=== PATIENT | male | born 1955 | race Caucasian/White ===

== ENCOUNTER 2016-11-29 06:30 | Inpatient (IN) | payer OTHER ==
[~2016-11-29] VITALS: Ht 213.4 cm; Wt 107.0 kg
[2016-11-29] MEDS ORDERED: GABAPENTIN 300 MG CAPSULE ONE (06:49)
[2016-11-29] MEDS ORDERED: CELECOXIB 200 MG CAPSULE ONE (06:49)
[2016-11-29] MEDS ORDERED: ACETAMINOPHEN 500 MG TABLET ONE (06:50)
[2016-11-29] MEDS ORDERED: TRANEXAMIC ACID 650 MG TABLET ONE (06:51)
[2016-11-29] MEDS ORDERED: oxyCODONE HCL 10 MG TAB.ER.12H PO ONE (06:51)
[2016-11-29] MEDS ORDERED: SEVOFLURANE 15 MIN GAS INH ONE (07:40)
[2016-11-29] MEDS ORDERED: KETOROLAC TROMETHAMINE 30 MG VIAL IVP ONE (07:40)
[2016-11-29] MEDS ORDERED: BUPIVACAINE /EPINEPHRINE/PF 0.5% 30 ML VIAL INJ ONE (07:40)
[2016-11-29] MEDS ORDERED: LIDOCAINE 2%, 20 ML MDV INJ ONE (07:40)
[2016-11-29] MEDS ORDERED: MORPHINE SULFATE 10MG/10ML PF AMP EP ONE (07:40)
[2016-11-29] MEDS ORDERED: NS 100 ML BAG IV ONE (07:40)
[2016-11-29] MEDS ORDERED: TRANEXAMIC ACID 1,000 MG/10 ML VIAL IV ONE (07:40)
[2016-11-29] MEDS ORDERED: ROPIVACAINE HCL/PF 5 MG/ML 0.5% 30 ML VIAL INJ ONE (07:40)
[2016-11-29] MEDS ORDERED: EPINEPHrine 1 MG/ML AMP IVP ONE (07:40)
[2016-11-29] MEDS ORDERED: ONDANSETRON HCL 4 MG/2 ML VIAL IVP ONE (07:40)
[2016-11-29] MEDS ORDERED: LR 1,000 ML IV.SOLN IV ONE (07:40)
[2016-11-29] MEDS ORDERED: MIDAZOLAM HCL 5 MG/5 ML VIAL IVP ONE (07:40)
[2016-11-29] MEDS ORDERED: PROPOFOL 200MG/ 20ML VIAL (DIPRIVAN) IV ONE (07:40)
[2016-11-29] MEDS ORDERED: fentaNYL CITRATE 250 MCG/5 ML AMP IV ONE (07:40)
[2016-11-29] MEDS ORDERED: POLYMYXIN 500,000/BACIT.10,000 UNITS in NS IRR 1 L IR ONE (07:59)
[2016-11-29] MEDS ORDERED: CEFAZOLIN SOD 2 GM in D5W 50 ML IV ONE (08:00)
[2016-11-29] MEDS ORDERED: PRO40 PO (08:01)
[2016-11-29] MEDS ORDERED: METO50TA7 PO (08:01)
[2016-11-29] MEDS ORDERED: LOSA50TA3 PO (08:01)
[2016-11-29] MEDS ORDERED: NALOXONE HCL 0.4 MG/ML AMP (NARCAN) IVP PRN (09:45)
[2016-11-29] MEDS ORDERED: HYDROmorphone 1 MG INJ. 1 MG/ML AMPUL IVP PRN (09:45)
[2016-11-29] MEDS ORDERED: MIDAZOLAM HCL 5 MG/5 ML VIAL IVP PRN (09:45)
[2016-11-29] MEDS ORDERED: MORPHINE 4 MG/ML INJ. SYRINGE IVP PRN ×2 (09:45→10:45)
[2016-11-29] MEDS ORDERED: ONDANSETRON HCL 4 MG/2 ML VIAL IVP PRN (09:45)
[2016-11-29] MEDS ORDERED: fentaNYL CITRATE/PF 100 MCG/2 ML AMP IVP PRN (09:45)
[2016-11-29] MEDS ORDERED: LABETALOL 100 MG/ 20ML VIAL IVP PRN (09:45)
[2016-11-29] MEDS ORDERED: LR 1,000 ML IV ONE (09:45)
[2016-11-29] MEDS ORDERED: SENNOSIDES 8.6 MG TABLET PO PRN (10:45)
[2016-11-29] MEDS ORDERED: PROMETHAZINE HCL 25 MG/ML AMP IVP PRN (10:45)
[2016-11-29] MEDS ORDERED: oxyCODONE HCL 5 MG TABLET PO PRN (10:45)
[2016-11-29] MEDS ORDERED: KETOROLAC TROMETHAMINE 30 MG VIAL IVP PRN (10:45)
[2016-11-29] MEDS ORDERED: DIPHENHYDRAMINE HCL 50 MG CAPSULE PO PRN (10:45)
[2016-11-29] MEDS: D5LR 1,000 ML IV SCH ×2 (11:45→21:32)
--- NOTE | 2016-11-29 11:45 | NUR ---
RECEIVED PT FORM PACU Received pt from PACU AAOx4, no s/s resp distress, no c/o pain or discomfort. Received report from Brooke ALVARADO. Pt's at bedside. Pt placed on telemetry as ordered. Noted clean, dry and intact dressing to right knee with polar care in place. Right heel elevated on pillow. Pt able to wiggle toes, move right foot, pedal pulse palpable bilaterally. Plan of care for the day reviewed with pt-pt and his verbalized their understanding. Pain management, skin and safety discussed-teach back done. Contact phone number explained, call light within reach.
[2016-11-29 11:55] VITALS: BP_SYST 134
--- NOTE | 2016-11-29 12:01 | NUR ---
CONSULT PO MED MANAGEMENT S/P RTKA DR RODRIGUEZ [phone] S/W [facility] OFFICE @ [id number]
[2016-11-29 13:58] VITALS: BP_SYST 134
--- NOTE | 2016-11-29 14:00 | NUR ---
BLEEDING Pt bleeding from incision site, pt's BP 140/75, dressing reinforced, noted pt had ambulated with physical therapy within last half hour, bellows charger assembler informed.
--- NOTE | 2016-11-29 15:12 | NUR ---
ROUNDS Pt in bed with CPM on at ordered setting, pt tolerating it well, no s/s resp distress, pt states pain tolerable at -04/30. Call light within reach. Addendum: 11/29/16 at 1516 by Leticia Be RN No further bleeding from the incision site noted.
[2016-11-29] MEDS: ACETAMINOPHEN 500 MG TABLET PO SCH ×2 (16:19→21:25)
[2016-11-29] MEDS: CEFAZOLIN 1 GM IVPB PREMIX 50 ML IV SCH ×2 (16:26→21:22)
--- NOTE | 2016-11-29 18:45 | NUR ---
CLOSING NOTE Pt resting quietly in bed with CPM on at ordered settings, tolerating well, c/o tolerable pain 2-10. No further bleeding noted from incision site. Pt's at bedside. Pt encouraged to use the IS 10 times per hour while. IVF infusing well to left hand at ordered rate with no s/s infiltration to site. Needs met, call light within reach.
[2016-11-29 20:00] VITALS: BP_SYST 131
--- NOTE | 2016-11-29 20:00 | NUR ---
PM Shift Assessment Received patient sitting up in bed, AAO x4, no acute distress noted, is at the bedside. Assessment complete, states pain is tolerable at this time. Pain management education provided, patient verbalized understanding. RLE noted with dressing in place, scant amount of dry blood noted. Per AM RNMD aware and dressing was reinforced, will monitor closely for any additional bleeding. CPM and polar care in place, patient tolerating well. No complain of numbness or tingling to RLE, pedal pulses present, capillary refill <3 seconds, patient able to plantar and dorsi flex BLE. Gilliam catheter noted, secured in place, draining urine well to gravity. IV noted to left hand, noted to be kinked, new IV to be started. Incentive spirometer noted at the beside, patient able to demonstrate correct use up to 3000mL of inspired air. Education provided on the importance of use 10x per hour while awake, he verbalized understanding. Plan of care discussed with patient and updated on board. Patient is verbally able to make needs known and encouraged to do so. Call light is within reach, all fall and safety precautions in place, will continue to monitor for change in patient status.
[2016-11-29] MEDS: GABAPENTIN 300 MG CAPSULE PO SCH (21:24)
[2016-11-29] MEDS: CELECOXIB 200 MG CAPSULE PO SCH (21:26)
--- NOTE | 2016-11-29 22:33 | NUR ---
RN Rounds Patient is resting quietly in bed, no acute distress noted. Scheduled medications administered as ordered per MD. New IV was started to right hand, 22 gauge, good blood return noted, flushes well, IV antibiotics restarted and infusing well. CPM and polar care remain in place, patient tolerating well. No additional blood noted to dressing on knee. Encouraged patient to call with all needs, he verbalized understanding. Call light is within reach, all fall and safety precautions in place, will continue to monitor.
[2016-11-29] MEDS: oxyCODONE HCL 5 MG TABLET PO PRN (23:23)
[2016-11-30 00:23] VITALS: BP_SYST 118
--- NOTE | 2016-11-30 00:31 | NUR ---
RN Rounds Patient is resting quietly in bed, no acute distress noted. CPM was removed at 2300 as ordered, pillow was placed under ankle, no additional bleeding noted from incision site. PRN pain medication was administered earlier as ordered per MD, upon reassessment, patient verbalized relief of pain to tolerable level on pain scale. Call light is within reach, all fall and safety precautions in place, will continue to monitor.
--- NOTE | 2016-11-30 02:29 | NUR ---
RN Rounds Patient is sleeping, respirations are even and unlabored, no acute distress noted. No non-verbal signs of pain noted at this time. Call light is within reach, all fall and safety precautions in place, will continue to monitor.
[2016-11-30 04:16] VITALS: BP_SYST 129
--- NOTE | 2016-11-30 04:32 | NUR ---
RN Rounds Patient is resting quietly in bed, no acute distress noted. States pain is tolerable at this time. No additional bleeding noted from incision site on dressing. Polar care in place, Gilliam continues to drain well to gravity. Encouraged patient to call with all needs. Call light is within reach, all fall and safety precautions in place, will continue to monitor.
[2016-11-30] MEDS: D5LR 1,000 ML IV SCH (05:44)
[2016-11-30] MEDS: CEFAZOLIN 1 GM IVPB PREMIX 50 ML IV SCH (05:44)
--- NOTE | 2016-11-30 06:33 | NUR ---
Closing Notes Patient is resting quietly in bed, no acute distress noted. States pain is tolerable at this time, re-educated on pain management, patient verbalized understanding. IV antibiotics infusing well. Patient is stable, all needs met throughout shift. Will continue to monitor until endorsed to AM nurse at bedside.
[2016-11-30 06:52] LABS: CALCIUM 8.8 mg/dL (8.4-11.0); CREATININE 0.87 mg/dL (0.55-1.30); POTASSIUM 4.1 mmol/L (3.5-5.1)
[2016-11-30 07:20] LABS: BASOPHILS % (AUTO) 0.2 % (0.0-2.0); EOSINOPHILS % (AUTO) 0.4 % (0.0-4.0); HEMATOCRIT 39.5 % (36-54); HEMOGLOBIN 13.5 g/dL (14.0-18.0); LYMPHOCYTES # (AUTO) 1.3 K/uL (1.0-5.5); LYMPHOCYTES % (AUTO) 21.8 % (20.5-51.5); MEAN CORPUSCULAR HEMOGLOBIN 31 pg (27-31); MEAN CORPUSCULAR HGB CONC 34 % (32-36); MEAN CORPUSCULAR VOLUME 92 fL (79.0-98.0); MONOCYTES # (AUTO) 0.6 K/uL (0.0-1.0); MONOCYTES % (AUTO) 11.2 % (1.7-9.3); NEUTROPHILS # (AUTO) 3.9 K/uL (1.8-7.7); NEUTROPHILS % (AUTO) 66.4 % (40.0-70.0); PLATELET COUNT (AUTO) 146 K/uL (130-430); RED CELL DISTRIBUTION WIDTH 12.5 % (9.0-15.0); WHITE BLOOD COUNT (AUTO) 5.8 K/uL (4.8-10.8)
--- NOTE | 2016-11-30 08:10 | NUR ---
Opening Note Report received form Anayeli light RN. Patient is in stable condition and is resting in bed. Patient is s/p right knee arthroplasty by Dr. Washington. Right pedal pulse is palpable and patient is able to move all of the toes on the right foot. Right knee is wrapped with an michelle bandage and polar care is in place. Patient is using IS. Gilliam cath is to gravity draining clear yellow urine. Will continue to monitor.
[2016-11-30 08:19] VITALS: BP_SYST 125
[2016-11-30] MEDS: CELECOXIB 200 MG CAPSULE PO SCH ×2 (08:33→21:15)
[2016-11-30] MEDS: ACETAMINOPHEN 500 MG TABLET PO SCH ×3 (08:33→21:15)
[2016-11-30] MEDS: PANTOPRAZOLE SODIUM 40 MG TAB PO SCH (08:33)
[2016-11-30] MEDS: METOPROLOL SUCCINATE 50 MG TAB.SR.24H (TOPROL XL) PO SCH (08:34)
[2016-11-30] MEDS: LOSARTAN POTASSIUM 50 MG TABLET (COZAAR) PO SCH (08:34)
--- NOTE | 2016-11-30 08:44 | NUR ---
HCP/PA/SUSANA: Called JANA Mary Alice Zelaya made her aware of discharge to SNF vs Home on Wed possible home health w/PT, CPM, [facility], and [facility]. Faxed order to [phone]. Filed fax confirmation in binder.
[2016-11-30] MEDS: RIVAROXABAN 10 MG TABLET PO SCH (09:05)
[2016-11-30 13:18] VITALS: BP_SYST 139
--- NOTE | 2016-11-30 13:47 | NUR ---
DC planning: Pt's Shawanda called our office asking about dc plans for home vs rehab facility. I explained the differences between home with home health vs rehab. Her concerns were that on Tuesday, she would not be home to help him because she has to go to work, but her brother in law would be able to come a couple of hours per day. I informed her about non-medical care givers that could help out at home for hourly fee (not covered by insurance but would only be needed temporarily), and said I will leave a few pamphlets at the bedside. I also explained Mary Alice Zelaya is the medical group corrections caseworker and gave her Mary Alice's ph# [phone] to discuss the home health and DME, and Shawanda anticipates discharge tomorrow. TADEO ALVARADO
--- NOTE | 2016-11-30 16:48 | NUR ---
PAGED PAGED RADHA SNYDER AT [phone]MALINICK LEVIN RICHARD.
[2016-11-30 16:58] VITALS: BP_SYST 126
--- NOTE | 2016-11-30 17:09 | NUR ---
Spoke with Spoke with Dr. Hernandez, who is covering for Dr. Dodge. Notified MD that bright red blood was on the dressing and the reinforcement that was done last night. Report pre op and today's am labs to MD. Order for stat H&H was received. MD also stated to keep reinforcing the surgical dressing. Will follow up with labs.
[2016-11-30 17:33] LABS: HEMATOCRIT 36.8 % (36-54); HEMOGLOBIN 12.7 g/dL (14.0-18.0)
--- NOTE | 2016-11-30 18:53 | NUR ---
Closing Note Spoke with Dr. Hernandez. Current H&H of 12.7 and 36.9 to MD. MD also made aware that the patient is on Xeralto. No changes were made to his medications. Patient has been in stable condition throughout the day. Surgical dressing was reinforced. IV is on the lef hand 22g running [id number]. Patient has a strong right pedal pulse and has been using the IS. Will endorse care to the oncoming nurse.
[2016-11-30 20:00] VITALS: BP_SYST 124
--- NOTE | 2016-11-30 20:00 | NUR ---
Initial PM Note Pt was received lying in bed fully AAO x4. Pt's is visiting at the bedside. Pt's speech is clear and pt is able to make his need known. No c/o pain or discomfort at this time. No acute distress noted. Rt knee dressing is slightly saturated with pinkish drainage. Polar ice machine to Rt knee is on. CPM to Rt knee is on at 0 to 60 degrees and well tolerated by pt. Neurovascular checks to BLE are WN. All toes are warm to touch and with good capillary refills. Pt is able to wriggle his toes freely. IVF of D5LR is infusing well in RH at TKO rate of 10ml/hr without any signs of infiltration. Pt was instructed to use IS 10X q1hr Wa and pt verbalized understanding. Pt had good demonstration otilia IS usage with volume up to 3000ml.
--- NOTE | 2016-11-30 21:10 | NUR ---
Rt Knee Dressing Rt knee dressing noted with moderate amount of pinkish drainage and was reinforced with ABD pads.
[2016-11-30] MEDS: GABAPENTIN 300 MG CAPSULE PO SCH (21:16)
--- NOTE | 2016-11-30 23:00 | NUR ---
CPM Off CPM was removed from Rt Knee per Physical Therapist's recommendation. Rt leg was elevated on a pillow with the pillow away from underneath pt's Rt knee. Rt knee dressing dry and intact at this time. No active bleeding noted. Icing to Rt knee continued with Polar care. Neurovascular checks to BLE remain WNL. Fall and safety precautions are in place. Call light is with pt and bed alarm is on. Will continue to monitor pt.
--- NOTE | 2016-12-01 | NUR ---
Rounds Pt is resting comfortably in bed and no acute distress noted. No c/o pain or discomfort. Fall and safety precautions are in place. Will continue to monitor pt. Addendum: 12/01/16 at 0508 by Shanta Gan RN Neurovascular checks to BLE are WNL. Toes are warm to touch and with good capillary refills. Pt is able to wriggle his toes freely. Rt knee dressing is dry and intact. No evidence of active bleeding noted. Polar ice to Rt knee continues.
--- NOTE | 2016-12-01 00:58 | NUR ---
Pain Medication Request and Refusal Pt c/o 09/30 pain in his right knee and requested pain medication. After two Oxycodone tablets were removed from Pyxis, pt declined the medication. Pt stated he was feeling better with adjustment of his body in bed. Rt knee dressing is dry and intact. No evidence of active bleeding noted. Fall and safety precautions are in place. Will continue to monitor pt.
[2016-12-01 01:29] VITALS: BP_SYST 129
--- NOTE | 2016-12-01 02:00 | NUR ---
Rounds Pt is sleeping comfortably in bed without any distress noted. IVF is infusing well in his right hand. Call light is with pt and bed alarm is on.
[2016-12-01] MEDS: D5LR 1,000 ML IV SCH ×4 (02:33→22:33)
[2016-12-01 03:28] VITALS: BP_SYST 113
--- NOTE | 2016-12-01 04:00 | NUR ---
Rounds Pt is sleeping comfortably in bed without any distress noted. Fall and safety precautions are in place. IVF is infusing well at TKO rate and no signs of infiltration noted. Addendum: 12/01/16 at 0508 by Shanta Gan RN Neurovascular checks to BLE are WNL. Toes are warm to touch and with good capillary refills. Pt is able to wriggle his toes freely. Rt knee dressing is dry and intact. No evidence of active bleeding noted. Polar ice to Rt knee continues.
--- NOTE | 2016-12-01 06:53 | NUR ---
Closing Note Pt is awake and resting comfortably in bed. All pt's needs were attended to. No fall or injury noted this shift. IVF is infusing well in right hand at TKO rate without any signs of infiltration. Rt knee dressing is dry and intact with polar care in place. Call light is with pt and bed alarm is on. Will endorse to day shift nurse.
[2016-12-01 07:13] LABS: CALCIUM 8.6 mg/dL (8.4-11.0); CREATININE 0.85 mg/dL (0.55-1.30)
[2016-12-01 07:26] LABS: BASOPHILS # (AUTO) 0.1 K/uL (0.0-0.2); BASOPHILS % (AUTO) 0.9 % (0.0-2.0); EOSINOPHILS % (AUTO) 0.8 % (0.0-4.0); HEMATOCRIT 35.7 % (36-54); HEMOGLOBIN 12.6 g/dL (14.0-18.0); LYMPHOCYTES # (AUTO) 1.2 K/uL (1.0-5.5); LYMPHOCYTES % (AUTO) 18.8 % (20.5-51.5); MEAN CORPUSCULAR HEMOGLOBIN 32 pg (27-31); MEAN CORPUSCULAR HGB CONC 35 % (32-36); MEAN CORPUSCULAR VOLUME 92 fL (79.0-98.0); MONOCYTES # (AUTO) 0.8 K/uL (0.0-1.0); MONOCYTES % (AUTO) 12.6 % (1.7-9.3); NEUTROPHILS # (AUTO) 4.1 K/uL (1.8-7.7); NEUTROPHILS % (AUTO) 66.9 % (40.0-70.0); PLATELET COUNT (AUTO) 135 K/uL (130-430); RED CELL DISTRIBUTION WIDTH 12.6 % (9.0-15.0); WHITE BLOOD COUNT (AUTO) 6.2 K/uL (4.8-10.8)
--- NOTE | 2016-12-01 07:29 | NUR ---
Nutrition Update Marcos Scale noted. Pt admitted for unilateral primary osteoarthritis, R knee. Diet: regular BMI: 23.5 kg/m2 RD to follow per nutrition care standards.
--- NOTE | 2016-12-01 07:49 | NUR ---
MD ROUNDS DR KELVIN DUNNE, AWARE OF PATIENTS CONDITION AND OF THE BLEEDING HE HAD YESTERDAY ON HIS RIGHT KNEE POST OPERATIVELY, MD CHANGED THE DRESSING AND STATED TO CONTINUE TO MONITOR PT FOR ANY CHANGES, PT WILL BE STAYING ONE MORE DAY IN THE HOSPITAL.
--- NOTE | 2016-12-01 08:00 | NUR ---
INITIAL NOTE RECEIVED PT IN BED, NO S/S OF DISTRESS OR SOB NOTED, PT HAS NO C/O PAIN AT THIS TIME, PT IN STABLE CONDITION, PT AAOX4, VERBAL. IV CATHETER PATENT, NO SIGNS OF INFECTION OR INFILTRATION NOTED. PT HAS AN INCISION ON RIGHT KNEE, CLEAN AND DRY AFTER DRESSING CHANGE PER MD. PT ABLE TO MOVE TOES ON RIGHT FOOT, SENSATION PRESENT, CAPILLARY REFILL LESS THAN 3 SECONDS, PULSE PALPABLE, NO TINGLING OR NUMBNESS PER PT. EDUCATED PT ON USE OF INCENTIVE SPIROMETER, PT TO USE 10 TIMES AN HOUR WHILE AWAKE, PT VERBALIZED UNDERSTANDING, PT AT 3000ML. BED AT LOWEST POSITION, CALL LIGHT WITHIN REACH, WILL CONTINUE TO MONITOR PT FOR ANY CHANGES. FALL PRECAUTIONS IN PLACE.
[2016-12-01 08:21] VITALS: BP_SYST 128
[2016-12-01] MEDS: ACETAMINOPHEN 500 MG TABLET PO SCH ×3 (08:34→21:24)
[2016-12-01] MEDS: METOPROLOL SUCCINATE 50 MG TAB.SR.24H (TOPROL XL) PO SCH (08:36)
[2016-12-01] MEDS: LOSARTAN POTASSIUM 50 MG TABLET (COZAAR) PO SCH (08:37)
[2016-12-01] MEDS: PANTOPRAZOLE SODIUM 40 MG TAB PO SCH (08:52)
[2016-12-01] MEDS: CELECOXIB 200 MG CAPSULE PO SCH ×2 (08:52→21:24)
[2016-12-01] MEDS: RIVAROXABAN 10 MG TABLET PO SCH (10:15)
--- NOTE | 2016-12-01 10:50 | NUR ---
ROUNDS PT UP IN CHAIR, NO S/S OF DISTRESS OR SOB NOTED, PT HAS NO C/O PAIN AT THIS TIME, PT IN STABLE CONDITION, TALKING TO FAMILY AT BEDSIDE, WILL CONTINUE TO MONITOR PT FOR ANY CHANGES.
--- NOTE | 2016-12-01 12:00 | NUR ---
NEUROVASCULAR CHECKS PT HAS AN INCISION ON RIGHT KNEE, CLEAN AND DRY. PT ABLE TO MOVE TOES ON RIGHT FOOT, SENSATION PRESENT, CAPILLARY REFILL LESS THAN 3 SECONDS, PULSE PALPABLE, NO TINGLING OR NUMBNESS PER PT. Addendum: 12/01/16 at 1752 by Teresa Barrios RN NOTED TO BLOOD TO DRESSING, CHECKED AND DRESSING CLEAN.
--- NOTE | 2016-12-01 12:30 | NUR ---
ROUNDS PT SITTING UP IN CHAIR, EATING LUNCH, NO S/S OF DISTRESS OR SOB NOTED, PT HAS NO C/O PAIN AT THIS TIME, PT IN STABLE CONDITION, WILL CONTINUE TO MONITOR PT FOR ANY CHANGES.
[2016-12-01 12:33] VITALS: BP_SYST 125
[2016-12-01 17:09] VITALS: BP_SYST 114; BP_SYST 125
--- NOTE | 2016-12-01 18:15 | NUR ---
CLOSING NOTE PT IN BED, NO S/S OF DISTRESS OR SOB NOTED, PT HAS NO C/O PAIN AT THIS TIME, INCISION ON RIGHT KNEE, CLEAN AND DRY NOTED NO BLEEDING. PT ABLE TO MOVE TOES ON RIGHT FOOT, SENSATION PRESENT, CAPILLARY REFILL LESS THAN 3 SECONDS, PULSE PALPABLE, NO TINGLING OR NUMBNESS PER PT. BED AT LOWEST POSITION, CALL LIGHT WITHIN REACH, WILL ENDORSE CARE OF PT TO INCOMING NURSE. FALL PRECAUTIONS IN PLACE. NEEDS MET THROUGHOUT SHIFT.
--- NOTE | 2016-12-01 18:40 | NUR ---
WOUND REASSESSMENT: REASSESSED RT KNEE WOUND. SMALL SPOT OF BLOOD OOZING THROUGH GAUZE, NOTED AND MARKED. NO CHANGE SINCE A.M. ASSESSMENT. PT RESTING COMFORTABLY. WILL ENDORSE TO WHIPPER RN.
[2016-12-01 20:00] VITALS: BP_SYST 113
--- NOTE | 2016-12-01 20:00 | NUR ---
Initial PM Note Pt was received lying in bed fully AAO x4. Pt's speech is clear and pt is able to make his needs known. No c/o pain or discomfort at this time. No acute distress noted. Rt knee dressing dry and intact and no evidence of active bleeding noted. Small area of old bleeding site noted. Polar ice machine to Rt knee is on. CPM is off and pt does not want it reapplied after he got out of bed to use BSC around change of shift. Rt leg is elevated on a pillow with the pillow away from pt's Rt knee. Neurovascular checks to BLE are WNL. All toes are warm to touch and with good capillary refills. Pt is able to wriggle his toes freely. Saline lock in RH is without any signs of infiltration and pt does not want IVF reconnected. Pt was instructed to use IS 10X q1hr WA and pt verbalized understanding. Will continue to monitor pt.
[2016-12-01] MEDS: GABAPENTIN 300 MG CAPSULE PO SCH (21:24)
--- NOTE | 2016-12-01 22:00 | NUR ---
Rounds Pt is sleeping without any distress noted. Call light is with pt and bed alarm is on.
--- NOTE | 2016-12-02 | NUR ---
Rounds Pt is sleeping without any resp distress noted. Rt knee dressing is dry and intact without any signs of active bleeding. Neurovascular checks to BLE are WNL. All toes are warm to touch and with good capillary refills. Pt is able to wriggle his toes freely.
[2016-12-02 00:37] VITALS: BP_SYST 106
--- NOTE | 2016-12-02 02:00 | NUR ---
Rounds Pt is sleeping comfortably in bed. Fall and safety precautions are in place. Call light is with pt and bed alarm is on.
--- NOTE | 2016-12-02 03:56 | NUR ---
Rounds Pt is resting comfortably in bed. Neurovascular checks to BLE are WNL. All toes are warm to touch and with good capillary refills. Pt is able to wriggle his toes freely. Call light is with pt and bed alarm is on.
[2016-12-02 04:50] VITALS: BP_SYST 111
--- NOTE | 2016-12-02 05:30 | NUR ---
Rounds Pt is sleeping without any respiratory distress noted. Fall and safety precautions are in place. Will continue to monitor pt.
--- NOTE | 2016-12-02 07:15 | NUR ---
Closing Note Pt is awake and resting quietly in bed. Rt knee dressing remains dry and intact with no active bleeding noted. No c/o pain or discomfort at this time. Bedside report was given to day shift nurse.
[2016-12-02 07:20] LABS: CALCIUM 9.4 mg/dL (8.4-11.0); CREATININE 0.71 mg/dL (0.55-1.30); POTASSIUM 3.9 mmol/L (3.5-5.1)
[2016-12-02 07:40] VITALS: BP_SYST 132
--- NOTE | 2016-12-02 07:40 | NUR ---
Opening Note Patient A/ox3, laying in bed, watching TV. No complaints of pain. Pulses assessed, +2 and equal, sensation noted, cap refill <3 seconds, able to wiggle toes and push up and down on nurse's hands. Foot elevated on pillow, polar care on. Notified that PT will be in to work with him and pain medications will be given at that time. Patient expressed concern about not having a bowel movement and requests a laxative. No orders for PRN stool softeners at this time, will notify Dr Bishop. Bed alarm set, call light in reach and safety precautions in order.
[2016-12-02 07:48] LABS: BASOPHILS % (AUTO) 0.5 % (0.0-2.0); EOSINOPHILS # (AUTO) 0.1 K/uL (0.0-0.4); EOSINOPHILS % (AUTO) 0.8 % (0.0-4.0); HEMATOCRIT 34.5 % (36-54); HEMOGLOBIN 11.7 g/dL (14.0-18.0); LYMPHOCYTES # (AUTO) 1.1 K/uL (1.0-5.5); LYMPHOCYTES % (AUTO) 17.8 % (20.5-51.5); MEAN CORPUSCULAR HEMOGLOBIN 32 pg (27-31); MEAN CORPUSCULAR HGB CONC 34 % (32-36); MONOCYTES # (AUTO) 0.8 K/uL (0.0-1.0); MONOCYTES % (AUTO) 12.2 % (1.7-9.3); NEUTROPHILS # (AUTO) 4.3 K/uL (1.8-7.7); NEUTROPHILS % (AUTO) 68.7 % (40.0-70.0); PLATELET COUNT (AUTO) 147 K/uL (130-430); RED BLOOD CELL COUNT(AUTO) 3.68 MIL/uL (4.2-6.2); RED CELL DISTRIBUTION WIDTH 12.5 % (9.0-15.0); WHITE BLOOD COUNT (AUTO) 6.3 K/uL (4.8-10.8)
[2016-12-02 07:49] LABS: MEAN CORPUSCULAR VOLUME 94 fL (79.0-98.0)
--- NOTE | 2016-12-02 08:30 | NUR ---
Dr Edna Springer Notified that patient has not had a bowel movement since tuesday and would like a stool softener. Stated he would put an order in.
[2016-12-02] MEDS: D5LR 1,000 ML IV SCH (08:33)
[2016-12-02] MEDS: LOSARTAN POTASSIUM 50 MG TABLET (COZAAR) PO SCH (08:39)
[2016-12-02] MEDS: ACETAMINOPHEN 500 MG TABLET PO SCH ×2 (08:40→15:00)
[2016-12-02] MEDS: METOPROLOL SUCCINATE 50 MG TAB.SR.24H (TOPROL XL) PO SCH (08:41)
[2016-12-02] MEDS: PANTOPRAZOLE SODIUM 40 MG TAB PO SCH (08:41)
--- NOTE | 2016-12-02 09:18 | NUR ---
HCP/PA/SUSANA: Called JANA Zelaya made her aware of discharge home if ok with surgeon. Faxed order to [phone]. Filed fax confirmation in binder.
--- NOTE | 2016-12-02 09:37 | NUR ---
dcp. home with [facility] [phone]. [facility] at . 3:1 delivered to home. cpm will be delivered today. ff up with dr cheng in 1 week. tana oconnor
[2016-12-02] MEDS: oxyCODONE HCL 5 MG TABLET PO PRN (09:48)
[2016-12-02] MEDS: CELECOXIB 200 MG CAPSULE PO SCH (09:48)
[2016-12-02] MEDS: RIVAROXABAN 10 MG TABLET PO SCH (09:49)
[2016-12-02] MEDS ORDERED: ONDANSETRON HCL 4 MG/2 ML VIAL IVP PRN (10:45)
[2016-12-02 11:15] VITALS: BP_SYST 110
--- NOTE | 2016-12-02 11:49 | NUR ---
S/w behavioral health case manager Mary Alice Zelaya regarding DME delivery for CPM, informed that the patient stated CPM will not be delivered for 5 days, Mary Alice is aware of this and informed the patient's as well, and Dr. Washington is aware, patient is still ok to discharge, will follow up.
[2016-12-02 12:28] VITALS: BP_SYST 110
--- NOTE | 2016-12-02 13:50 | NUR ---
Patient sitting in chair, waiting for Physical therapy to walk up steps. No complaints of pain.
[2016-12-02] MEDS ORDERED: OXYC-132 PO (16:00)
[2016-12-02] MEDS ORDERED: RIVA10TA PO (16:01)
--- NOTE | 2016-12-02 16:20 | NUR ---
Active ROM Patient performing ROM with gait belt wrapped around his right food. No complaints of pain. Dressing clean, dry and intact.
[2016-12-02 16:22] VITALS: BP_SYST 112
--- NOTE | 2016-12-02 17:12 | NUR ---
D/C Patient Patient given medication reconciliation form and D/C instructions. Exit Care provided. Patient and verbalized understanding. Patient in stable condition, ID band removed. IV catheter removed, intact and dressing applied, no active bleeding. Rx of Xarelto and percocet given. Patient educated on pain management. All belongings sent with patient.Patient left facility via wheelchair.
== END 2016-12-02 17:12 | disposition home health service (06) | DRG 470 ==
LOC: SMU 06:30 → STU 11:50 → SMU 11-30 20:13
PROVIDERS: ADMIT Orthopaedic Surgery; ATTEND Orthopaedic Surgery
PROC: 0SRC0J9 Replacement of Right Knee Joint with Synthetic Substitute, Cemented, Open Approach (ICD-10-PCS; principal; 2016-11-29 10:00)
DX: M17.11 Unilateral primary osteoarthritis, right knee (principal); I10 Essential (primary) hypertension; Z87.891 Personal history of nicotine dependence; K21.9 Gastro-esophageal reflux disease without esophagitis; E66.9 Obesity, unspecified; Z68.23 Body mass index [BMI] 23.0-23.9, adult
CPT/HCPCS: 36415; 80048; 85018-TC; 85025; 87081; 88305; 88311; 97039; 97110-GP; 97116-GP; 97530-GP; C1713; C1776; J0171; J0690; J1885; J2001; J2250; J2270; J2274; J2405; J2704; J3010; J3490; J7060; J7120

== ENCOUNTER 2016-12-07 12:36 | Inpatient (IN) | payer OTHER ==
[~2016-12-07] VITALS: Ht 188 cm; Wt 107.0 kg
[2016-12-07 11:20] LABS: BASOPHILS % (AUTO) 0.5 % (0.0-2.0); EOSINOPHILS % (AUTO) 0.4 % (0.0-4.0); HEMATOCRIT 33.3 % (36-54); HEMOGLOBIN 11.6 g/dL (14.0-18.0); LYMPHOCYTES # (AUTO) 1.2 K/uL (1.0-5.5); LYMPHOCYTES % (AUTO) 16.2 % (20.5-51.5); MEAN CORPUSCULAR HEMOGLOBIN 34 pg (27-31); MEAN CORPUSCULAR HGB CONC 35 % (32-36); MEAN CORPUSCULAR VOLUME 99 fL (79.0-98.0); MONOCYTES # (AUTO) 0.8 K/uL (0.0-1.0); MONOCYTES % (AUTO) 10.8 % (1.7-9.3); NEUTROPHILS # (AUTO) 5.1 K/uL (1.8-7.7); NEUTROPHILS % (AUTO) 72.1 % (40.0-70.0); PLATELET COUNT (AUTO) 320 K/uL (130-430); RED BLOOD CELL COUNT(AUTO) 3.38 MIL/uL (4.2-6.2); RED CELL DISTRIBUTION WIDTH 12.3 % (9.0-15.0); WHITE BLOOD COUNT (AUTO) 7.1 K/uL (4.8-10.8)
[2016-12-07 11:59] LABS: ERYTHROCYTE SEDIMENTATION RATE 72 MM/HR (0-15)
[~2016-12-07 12:36] MED LIST: LOSA50TA3 PO; METO50TA7 PO; OXYC-132 PO; PRO40 PO; RIVA10TA PO
[2016-12-07] MEDS ORDERED: CEPH-568 PO (13:31)
[2016-12-07] MEDS ORDERED: CEFAZOLIN 1 GM IVPB PREMIX 50 ML IV ONE (13:36)
[2016-12-07] MEDS ORDERED: POLYMYXIN 500,000/BACIT.10,000 UNITS in NS IRR 1 L IR ONE (16:20)
[2016-12-07] MEDS ORDERED: LR 1,000 ML IV SCH (17:20)
[2016-12-07] MEDS ORDERED: HYDROmorphone 2 MG/ML VIAL IVP PRN ×2 (17:30)
[2016-12-07] MEDS ORDERED: MEPERIDINE HCL/PF 25 MG/ML DISP.SYRIN IVP PRN (17:30)
[2016-12-07] MEDS ORDERED: HYDROmorphone 1 MG INJ. 1 MG/ML AMPUL IVP PRN (17:30)
[2016-12-07] MEDS ORDERED: HYDROcodone/ACETAMIN 7.5-325 MG TAB PO PRN (18:45)
[2016-12-07] MEDS ORDERED: HYDROcodone/ACETAMIN 5-325 MG TAB (NORCO/ VICODIN) PO PRN (18:45)
[2016-12-07] MEDS ORDERED: ACETAMINOPHEN 325 MG TABLET PO PRN (18:45)
[2016-12-07] MEDS ORDERED: MORPHINE 4 MG/ML INJ. SYRINGE IVP PRN (18:45)
[2016-12-07] MEDS ORDERED: ONDANSETRON HCL 4 MG/2 ML VIAL IVP PRN (18:45)
[2016-12-07] MEDS ORDERED: SENNOSIDES 8.6 MG TABLET PO PRN (18:45)
[2016-12-07] MEDS ORDERED: DIPHENHYDRAMINE HCL 50 MG CAPSULE PO PRN (18:45)
[2016-12-07] MEDS ORDERED: PROMETHAZINE HCL 25 MG/ML AMP IVP PRN (18:45)
[2016-12-07] MEDS ORDERED: HYDROmorphone 1 MG INJ. 1 MG/ML AMPUL ONE (18:55)
[2016-12-07 20:20] VITALS: BP_SYST 151
[2016-12-07] MEDS: CEFAZOLIN 1 GM IVPB PREMIX 50 ML IV SCH (20:58)
[2016-12-07] MEDS: D5LR 1,000 ML IV SCH (20:58)
[2016-12-08] VITALS: BP_SYST 136
[2016-12-08] MEDS: CEFAZOLIN 1 GM IVPB PREMIX 50 ML IV SCH (04:05)
[2016-12-08 04:47] VITALS: BP_SYST 114
[2016-12-08] MEDS: D5LR 1,000 ML IV SCH (05:32)
[2016-12-08] MEDS ORDERED: METOPROLOL SUCCINATE 50 MG TAB.SR.24H (TOPROL XL) PO SCH (09:00)
[2016-12-08] MEDS ORDERED: LOSARTAN POTASSIUM 50 MG TABLET (COZAAR) PO SCH (09:00)
[2016-12-08] MEDS ORDERED: PANTOPRAZOLE SODIUM 40 MG TAB PO SCH (09:00)
[2016-12-08] MEDS ORDERED: ASPIRIN 325 MG TABLET (ECOTRIN) PO SCH (09:00)
[2016-12-08 10:21] LABS: CALCIUM 9.1 mg/dL (8.4-11.0); CREATININE 1.04 mg/dL (0.55-1.30); POTASSIUM 3.8 mmol/L (3.5-5.1)
[2016-12-08 10:24] LABS: ALBUMIN 3.1 g/dL (3.4-4.8)
[2016-12-08 10:38] LABS: INR 1.1 (0.80-1.20); PROTHROMBIN TIME 11.6 SECS (9.5-12.5)
[2016-12-08 12:15] VITALS: BP_SYST 131
[2016-12-08 16:46] VITALS: BP_SYST 124
[2016-12-08 16:57] VITALS: BP_SYST 124
[2016-12-08 17:06] VITALS: BP_SYST 124
[2016-12-08] MEDS ORDERED: ASPI-862 PO (17:19)
[2016-12-08] MEDS ORDERED: SEVOFLURANE 15 MIN GAS INH ONE (17:59)
[2016-12-08] MEDS ORDERED: MIDAZOLAM HCL 5 MG/ML VIAL (VERSED) IV ONE (17:59)
[2016-12-08] MEDS ORDERED: PROPOFOL 200MG/ 20ML VIAL (DIPRIVAN) IV ONE (17:59)
[2016-12-08] MEDS ORDERED: ONDANSETRON HCL 4 MG/2 ML VIAL IVP ONE (17:59)
[2016-12-08] MEDS ORDERED: KETOROLAC TROMETHAMINE 30 MG VIAL IVP ONE (17:59)
[2016-12-08] MEDS ORDERED: LR 1,000 ML IV.SOLN IV ONE (17:59)
[2016-12-08] MEDS ORDERED: fentaNYL CITRATE 250 MCG/5 ML AMP IV ONE (17:59)
[2016-12-08] MEDS ORDERED: ROCURONIUM BROMIDE 10 MG/ML (ZEMURON) IV ONE (17:59)
[2016-12-08] MEDS ORDERED: CEFAZOLIN 2 GM IVPB PREMIX 50 ML IV ONE (17:59)
[2016-12-08] MEDS ORDERED: VANCOMYCIN HCL 1000 MG/VIAL IV ONE (17:59)
[2016-12-08] MEDS ORDERED: DEXAMETHASONE SOD PHOSPHATE 4 MG/ML VIAL IVP ONE (17:59)
[2016-12-08] MEDS ORDERED: NS IRRIG SOLN 1000 ML IR ONE (17:59)
[2016-12-08] MEDS ORDERED: EPINEPHrine 1 MG/ML AMP IVP ONE (17:59)
[2016-12-08] MEDS ORDERED: NS 50 ML BAG IV ONE (17:59)
[2016-12-08] MEDS ORDERED: MORPHINE SULFATE 10MG/10ML PF AMP EP ONE (17:59)
== END 2016-12-08 18:00 | disposition home or self-care (01) | DRG 909 ==
LOC: SMU 12:36 → SDS 12:36 → SMU 19:30 → SDS 12-08 09:54
PROVIDERS: ADMIT Internal Medicine Hospice and Palliative Medicine; ATTEND Internal Medicine Hospice and Palliative Medicine
PROC: 0SCC0ZZ Extirpation of Matter from Right Knee Joint, Open Approach (ICD-10-PCS; principal; 2016-12-07 17:00)
DX: M96.840 Postprocedural hematoma of a musculoskeletal structure following a musculoskeletal system procedure (principal); E66.01 Morbid (severe) obesity due to excess calories; Z96.651 Presence of right artificial knee joint; K21.9 Gastro-esophageal reflux disease without esophagitis; I10 Essential (primary) hypertension; Y83.8 Other surgical procedures as the cause of abnormal reaction of the patient, or of later complication, without mention of misadventure at the time of the procedure; Y92.89 Other specified places as the place of occurrence of the external cause; Z68.30 Body mass index [BMI] 30.0-30.9, adult
CPT/HCPCS: 36415; 80053; 85025; 85610-TC; 85651-TC; 86140; 87070-TC; 87075-TC; 87081; 93971; 94760; 97039; 97116-GP; 97530-GP; J0171; J0690; J1100; J1170; J1885; J2250; J2274; J2405; J2704; J3010; J3370; J7120